=== PATIENT | male | born 1990 | race Caucasian/White ===

== ENCOUNTER 2018-04-04 18:45 | Emergency (ER) | payer OTHER ==
--- NOTE | 2018-04-04 18:54 | ER Report ---
History and Physical Time Seen By MD: 18:54 HPI/ROS CHIEF COMPLAINT: arm injury HISTORY OF PRESENT ILLNESS: This is a 27 year old male. He was at work and taking out the trash. He swung open the metal door to the dumpster. He slipped and fell. He has abrasions of the arm. The strong wind blew the metal gate back, catching his distal forearm. Severe pain with some swelling. Has some numbness of the forearm/wrist area. Allergies: Coded Allergies: No Known Drug Allergies (Unverified , 04/04/18) Home Meds Active Scripts Cephalexin Monohydrate (CEPHALEXIN) 500 Mg Cap, 500 MG PO Q6H, #20 CAP 0 Refills Prov:KAYA RODGERS MD 04/04/18 Hydrocodone Bit/Acetaminophen (HYDROCODON-ACETAMINOPHEN 5-325) 1 Each Tablet, 1 EACH PO Q4H PRN for PAIN, #12 TAB 0 Refills Prov:KAYA RODGERS MD 04/04/18 Reviewed Nurses Notes: Yes Smoking Status: Never Smoker Hx Substance Use Disorder: No Constitutional Vital Sign - Last 24 Hours 04/04/18 04/04/18 04/04/18 04/04/18 18:45 18:53 18:53 19:00 Temp 98.1 Pulse 80 85 Resp 17 B/P (MAP) 131/69 131/69 (89) 130/79 (96) Pulse Ox 98 O2 Delivery Room Air 04/04/18 04/04/18 04/04/18 04/04/18 19:15 19:30 19:45 20:00 Pulse 84 94 B/P (MAP) 108/69 (82) 106/69 (81) Pulse Ox 93 94 04/04/18 04/04/18 20:15 20:25 Pulse 93 B/P (MAP) 115/65 (82) Physical Exam General: Alert, mild distress due to pain. Skin: Abrasions on ventral and dorsal forearm. No laceration noted. Swelling Musculoskeletal: Pain in the forearm from just distal to elbow into the hand. Cardio: Normal cap refill and pulses. Neuro: Normal motor function and strength. Numbness in the wrist area. Medical Decision Making EKG/Imaging Imaging EXAMINATION: Right forearm 2 views Right hand 3 views HISTORY: Injury. Fall, hit by door. COMPARISON: None. FINDINGS: Right forearm views demonstrate a transverse fracture across the shaft of the distal right ulna, without significant displacement or angulation. Overlying soft tissue swelling. The right radius appears radiographically intact. Normal alignment at the elbow and wrist. Right hand views demonstrate no evidence of additional fracture in the right hand. Normal alignment. Joint spaces are preserved. Soft tissue swelling along the dorsal wrist. IMPRESSION: 1. Nondisplaced transverse fracture of the distal right ulnar shaft. 2. Soft tissue swelling along the right forearm and wrist. 3. No acute osseous findings in the right hand. Report Dictated By: Kristofer Carter MD at 04/04/2018 7:23 PM ED Course/Re-evaluation ED Course Imaging shows a distal ulnar shaft fracture. This is associated with abrasions, but is otherwise a closed fracture. Cleaned and dressed the wounds and applied a splint. Cephalexin given and he will follow-up with orthopedic surgery this week. Ibuprofen and Lortab as needed for pain. Procedure: Forearm sugar tong half cast placement. A half-cast/splint as noted above was applied. After application of the half- cast, I returned and re-examined the patient. The half-cast was adequately immobilizing the joint and distally the patient's circulation and sensation was intact. This was applied by myself. Decision to Disposition Date: Apr 04, 2018 Decision to Disposition Time: 19:57 Depart Departure Latest Vital Signs Vital Signs Date Time Temp Pulse Resp B/P (MAP) Pulse Ox O2 Delivery O2 Flow Rate FiO2 04/04/18 20:25 115/65 (82) 04/04/18 20:15 93 04/04/18 19:45 94 04/04/18 18:53 98.1 17 Room Air Impression: Primary Impression: Right distal ulnar fracture Condition: Improved Disposition: HOME OR SELF-CARE New Scripts Cephalexin Monohydrate (CEPHALEXIN) 500 Mg Cap 500 MG PO Q6H, #20 CAP 0 Refills Prov: KAYA RODGERS MD 04/04/18 Hydrocodone Bit/Acetaminophen (HYDROCODON-ACETAMINOPHEN 5-325) 1 Each Tablet 1 EACH PO Q4H PRN for PAIN, #12 TAB 0 Refills Prov: KAYA RODGERS MD 04/04/18 Patient Instructions: Arm Fracture in Adults (ED) Additional Instructions: We are putting a splint on your arm which you will leave on until you see orthopedic surgery. Call the orthopedic surgery group tomorrow to schedule an appointment for the next few days. Ibuprofen 200mg over the counter tablets, take 4 tablets three times a day with food. Lortab 5/325, one every 4 hours as needed for pain. Apply ice 20 minutes every 1-2 hours while awake. Rest the injured area, keep it elevated while at rest. No use of the right arm until you see the orthopedic surgeon. Off work tomorrow. Problem Qualifiers Primary Impression: Right distal ulnar fracture Encounter type: initial encounter Fracture type: closed Fracture morphology: other fracture Qualified Codes: S52.691A - Other fracture of lower end of right ulna, initial encounter for closed fracture KAYA RODGERS MD Apr 04, 2018 18:54
--- NOTE | 2018-04-04 19:33 | RADIOLOGY IMAGING REPORT ---
FACILITY: [facility] PATIENT NAME: Terry Espinosa : 1990 MR: [id number] V: [id number] EXAM DATE: ORDERING PHYSICIAN: KAYA RODGERS [place]CHNOLOG[place] [facility] [place] E[place] : 1990 Visit/Account:[id number] Date of Sevice: 04/04/2018 EXAMINATION: Right forearm 2 views Right hand 3 views HISTORY: Injury. Fall, hit by door. COMPARISON: None. FINDINGS: Right forearm views demonstrate a transverse fracture across the shaft of the distal right ulna, with out significant displacement or angulation. Overlying soft tissue swelling. The right radius appears radiographically intact. Normal alignment at the elbow and wrist. Right hand views demonstrate no evidence of additional fracture in the right hand. Normal alignment. Joint spaces are preserved. Soft tissue swelling along the dorsal wrist. IMPRESSION: 1. Nondisplaced transverse fracture of the distal right ulnar shaft. 2. Soft tissue swelling along the right forearm and wrist. 3. No acute osseous findings in the right hand. Report Dictated By: Kristofer Carter MD at 04/04/2018 7:23 PM Report E-Signed By: Kristofer Carter MD at 04/04/2018 7:30 PM WSN:[id number]
--- NOTE | 2018-04-04 19:33 | RADIOLOGY IMAGING REPORT ---
FACILITY: [facility] PATIENT NAME: Terry Espinosa : 1990 MR: [id number] V: [id number] EXAM DATE: ORDERING PHYSICIAN: KAYA RODGERS [place]CHN[place] [facility] [place] : 1990 Visit/Account:[id number] Date of Sevice: 04/04/2018 EXAMINATION: Right forearm 2 views Right hand 3 views HISTORY: Injury. Fall, hit by door. COMPARISON: None. FINDINGS: Right forearm views demonstrate a transverse fracture across the shaft of the distal right ulna, with out significant displacement or angulation. Overlying soft tissue swelling. The right radius appears radiographically intact. Normal alignment at the elbow and wrist. Right hand views demonstrate no evidence of additional fracture in the right hand. Normal alignment. Joint spaces are preserved. Soft tissue swelling along the dorsal wrist. IMPRESSION: 1. Nondisplaced transverse fracture of the distal right ulnar shaft. 2. Soft tissue swelling along the right forearm and wrist. 3. No acute osseous findings in the right hand. Report Dictated By: Kristofer Carter MD at 04/04/2018 7:23 PM Report E-Signed By: Kristofer Carter MD at 04/04/2018 7:30 PM WSN:[id number]
[2018-04-04] MEDS ORDERED: CEPHALEXIN MONO 500 MG CAP PO ONE (19:40)
[2018-04-04] MEDS ORDERED: ACET/HYDROC 5/325MG TH ER ONLY 2 TAB/BOTTLE PO ONE (19:40)
[2018-04-04] MEDS ORDERED: IBUPROFEN 800 MG TAB PO ONE (19:40)
[2018-04-04] MEDS ORDERED: BACITRACIN OINT 0.9 GM PKT TP ONE (19:56)
[2018-04-04] MEDS ORDERED: LOR5/325 PO (19:59)
[2018-04-04] MEDS ORDERED: CEPH500C24 PO (19:59)
[2018-04-04 20:25] VITALS: BP 115/65
== END 2018-04-04 20:37 | disposition home or self-care (01) ==
LOC: ER 18:59
DX: S52.691A Other fracture of lower end of right ulna, initial encounter for closed fracture (principal); W20.8XXA Other cause of strike by thrown, projected or falling object, initial encounter
CPT/HCPCS: 29125; 73090; 73130; 99283; C9399; 99284

== ENCOUNTER 2018-05-07 03:38 | Day surgery (SDC) | payer OTHER ==
[~2018-05-07] VITALS: Ht 171.4 cm; Wt 76.7 kg
[~2018-05-07 03:38] MED LIST: CEPH500C24 PO; LOR5/325 PO
[2018-05-07 05:30] VITALS: BP 105/69
[2018-05-07] MEDS ORDERED: LIDOCAINE/SOD BICARB 8.4% SYR ID ONE (06:15)
[2018-05-07] MEDS ORDERED: MIDAZOLAM 2 MG/2 ML VIAL IVP PRN (06:15)
[2018-05-07] MEDS ORDERED: NORMOSOL R SOLN(*) 1000 ML BAG 1,000 ML IV PRN (06:15)
[2018-05-07] MEDS ORDERED: ceFAZolin(*) 1 GM VIAL 1 GM in NS(*) 0.9% 100 ML ADDVANT BAG 100 ML IVPB ONE (06:15)
[2018-05-07] MEDS ORDERED: FAMOTIDINE 20 MG TAB PO ONE (06:15)
[2018-05-07] MEDS ORDERED: CELECOXIB 200 MG CAP PO ONE (06:15)
[2018-05-07] MEDS ORDERED: fentaNYL CITR 250 MCG/5 ML AMP ONE (06:40)
[2018-05-07] MEDS ORDERED: DEXAMETHASONE SOD PHOS 10MG/ML ONE (06:45)
[2018-05-07] MEDS ORDERED: PROPOFOL EMUL(*) 10MG/ML 20 ML 20 ML ONE (06:45)
[2018-05-07] MEDS ORDERED: KETAMINE HCL 200 MG/20 ML MDV ONE (06:45)
[2018-05-07] MEDS ORDERED: ONDANSETRON 4 MG/2 ML VIAL ONE (06:45)
[2018-05-07] MEDS ORDERED: LIDOCAINE MPF 1% 5 ML VIAL ONE (06:45)
[2018-05-07] MEDS ORDERED: BACITRACIN OINT 15 GM TUBE TP ONE (06:47)
[2018-05-07] MEDS ORDERED: ROPIVACAINE 0.2% 20 ML VIAL ONE (06:47)
[2018-05-07] MEDS ORDERED: HALOPERIDOL LACT 5 MG/ML VIAL IM ONE (06:54)
[2018-05-07] MEDS ORDERED: fentaNYL CITR 100 MCG/2 ML AMP ONE (08:46)
[2018-05-07] MEDS ORDERED: HYDR-385 PO (08:51)
[2018-05-07] MEDS ORDERED: CEPH500T7 PO (08:54)
[2018-05-07] MEDS ORDERED: APAP/HYDROCODONE 325/5 TAB ONE (09:20)
[2018-05-07 09:30] VITALS: BP 123/69
--- NOTE | 2018-05-07 09:45 | OPERATIVE REPORT 1 ---
EVENT DATE: May 07, 2018 SURGEON: Rio Stoddard MD ANESTHESIOLOGIST: Real Whitley MD ANESTHESIA: General. TRAY ROOM WORKER: KELLEN Lamb PREOPERATIVE DIAGNOSIS Right ulnar shaft malunion. POSTOPERATIVE DIAGNOSIS Right ulnar shaft malunion. PROCEDURE PERFORMED Osteoclasis of ulnar shaft malunion with open reduction and internal fixation; [id number]. ESTIMATED BLOOD LOSS Minimal. INTRAVENOUS FLUIDS 800. TOURNIQUET TIME Approximately 46 minutes. SPECIMENS None. COMPLICATIONS None. IMPLANTS USED Six-hole Synthesis semi-tubular plate, locking. DESCRIPTION OF PROCEDURE The patient was brought into the operating room and placed on the OR table in the supine position. After obtaining adequate general anesthesia, the right upper extremity was prepped and draped in the usual sterile fashion. The limb was exsanguinated and the tourniquet was inflated. A longitudinal incision was made starting at the ulnar styloid, extending proximally. I went a little bit more distal than I would have had to otherwise to make sure that I could avoid direct injury to the dorsal cutaneous nerve and also so I could retract without as much tension because I knew the plate would have to go fairly far distal. After exposing the fracture site, there was no motion at it. It was angulated and rotated with a moderate translation. I used a curette to progressively debride the callus from around the fracture until we got back down to normal bone and then there was trace motion and rotation but still no translation capable and I could not open up the fracture to reduce it properly. I used a fibular clamp on both ends and began to work with rotation and traction as well as progressive releases on the interosseous membrane side to remove callus from that area as well. Once I had fully circumferentially released callus, then we could finally open up the fracture and clean out the interstices so that we were able to reduce it in the anatomic fashion. It was actually quite challenging to extend it to the appropriate length and reduce it. It took a great deal of force but once it locked into place it was fairly stable on its own. A six-hole plate was then applied on the volar side to minimize the need of subsequently removing it. We placed a locking screw and then a compression screw followed by the remainder of screws being locking. The x-rays were than taken to confirm adequacy of reduction as well as screw lengths and everything was fine. The wound was irrigated. We closed with 2-0 Vicryl and then 3-0 Vicryl followed by 4-0 Monocryl. He was given a dry sterile dressing and a long-arm splint. He was awakened and transferred to the recovery room in stable condition. VIRGILIO
[2018-05-07 10:00] VITALS: BP 132/75
[2018-05-07 10:02] VITALS: BP 124/70
[2018-05-07 10:03] VITALS: BP 132/71
[2018-05-07 10:20] VITALS: BP 123/69
== END 2018-05-07 09:30 | disposition home or self-care (01) ==
LOC: OR 03:38
PROVIDERS: ATTEND Orthopaedic Surgery Hand Surgery
DX: S52.201A Unspecified fracture of shaft of right ulna, initial encounter for closed fracture (principal)
CPT/HCPCS: 25400; 76000; C1713; J0690; J1100; J1630; J2001; J2250; J2405; J2704; J2795; J3010; J3490; J7050